=== PATIENT | female | born 1990 | race African-American/Black ===

== ENCOUNTER 2020-06-20 16:14 | Emergency (ER) | payer MEDICARE, SELFPAY ==
[2020-06-20] VITALS (30 sets, daily range): BP systolic 128–163; BP diastolic 87–109; PULSE 72–96; RESP 15–31; TEMP 36.7; O2SAT 96–100
--- NOTE | ~2020-06-20 | XR_ITS ---
EXAMINATION: XR chest 2V 06/20/2020 17:34 INDICATION: Mid chest pain and shortness of breath PROCEDURE: 2 view chest COMPARISON: 04/20/2017 FINDINGS: The lungs are clear. The cardiomediastinal silhouette is within normal limits. There are no pleural effusions. There is no pneumothorax suspected. IMPRESSION: 1: NO ACUTE CARDIOPULMONARY DISEASE. Reviewed, dictated and finalized at location A.
--- NOTE | 2020-06-20 17:04 | ECG_ITS ---
Measurements Intervals Spring Rate: 77 P: 63 MO: 157 QRS: 58 QRSD: 99 T: 36 QT: 360 QTc: 409 Interpretive Statements SINUS RHYTHM POSSIBLE LEFT ATRIAL ENLARGEMENT BORDERLINE ECG Electronically Signed On 06-20-2020 18:23:25 CDT by Ishmael Burger D.O.
[2020-06-20 17:23] LABS: Basophils Percent Auto 0.2 % (0.2-1.2); Eosinophils Percent Auto 0.4 % (0-4.4); Hematocrit 48.9 % (37.0-47.0); Hemoglobin 17.2 g/dL (12.0-15.0); Immature Granulocyte Absolute 0.01 K/mm3 (0.00-0.031); Immature Granulocyte Percent A 0.2 % (0-0.5); Lymphocytes Absolute Auto 2.08 K/mm3 (0.9-3.2); Lymphocytes Percent Auto 40.9 % (18.3-44.2); Mean Corpuscular HGB Conc 35.2 g/dl (32-36); Mean Corpuscular Hemoglobin 29.4 pg (26-34); Mean Corpuscular Volume 83.6 fl (80-100); Mean Platelet Volume 11.5 fl (7.4-10.4); Monocytes Absolute Auto 0.5 K/mm3 (0.1-0.6); Monocytes Percent Auto 10.2 % (2.6-8.5); Neutrophils Absolute Auto 2.4 K/mm3 (1.3-6.7); Neutrophils Percent Auto 48.1 % (45.5-73.1); Platelet Count Result 183 k/mm3 (150-375); Red Blood Count 5.85 M/mm3 (4.2-5.4); Red Cell Distribution Width 13.5 % (11.5-14.5); White Blood Count 5.1 K/mm3 (4.5-10.0)
[2020-06-20 17:33] LABS: INR 1.1; Partial Thromboplastin Time 26.6 SECONDS (22.3-36.8); Prothrombin Time 13.9 Seconds (11.1-14.7)
[2020-06-20 17:42] LABS: Anion Gap 18 mmol/L (8-16); Blood Urea Nitrogen 26 mg/dL (7-17); Calcium 9.8 mg/dL (8.4-10.2); Carbon Dioxide 18 mmol/L (22-30); Chloride 97 mmol/L (98-107); Estimated Glomerular Filt Rate > 60; Glucose 74 mg/dL (65-105); Potassium 3.3 mmol/L (3.4-5.0); Sodium 133 mmol/L (137-145)
--- NOTE | 2020-06-20 17:49 | ED.GENADULT ---
HPI - General Adult General Chief complaint: Unspecified Stated complaint: MS FLARE Time Seen by Provider: 06/20/20 17:35 Source: patient Mode of arrival: ambulatory Limitations: no limitations History of Present Illness HPI narrative: This is a 29 year old female that presents to the ER for right sided chest pain x 3 days. Reports constant pain and then intermittent sharp stabbing pains. Reports she feels short of breath. Denies fever, cough, congestion. Related Data Allergies Allergy/AdvReac Type Severity Reaction Status Date / Time naproxen Allergy Mild itching Verified 06/20/20 16:48 tramadol Allergy Mild itching Verified 06/20/20 16:48 Review of Systems Review of Systems: Narrative: CONSTITUTIONAL: Denies fever CARDIOVASCULAR: Reports chest pain RESPIRATORY: Reports dyspnea. Denies cough All systems reviewed & are unremarkable except as noted in HPI and below PMFSH Past Medical History Medical History (Updated 06/20/20 @ 20:17 by Kristin Loza PA-C) History of hypertension History of multiple sclerosis Social History Social History (Updated 06/20/20 @ 17:51 by Kristin Loza PA-C) Substance use: never Gender identity (if verbalized by the patient): Female Exam Narrative: Exam Narrative: GENERAL: Well-appearing, well-nourished, and in no acute distress. HEAD: Normocephalic, atraumatic. EYES: PERRLA and EOMI. ENT: Nares clear, no rhinorrhea or epistaxis. Mucous membranes moist. Oropharynx without tonsillar hypertrophy exudate or other lesions. Bilateral TMs pearly nassar non-bulging NECK: Supple. No adenopathy or masses. CHEST: Clear to auscultation. No respiratory distress. No wheezes rales or rhonchi. Tender to palpation of the mid chest wall anteriorly HEART: Regular rate and rhythm. No murmur heard. Normal peripheral pulses. EXTREMITIES: Normal range of motion. No edema. SKIN: Warm, dry, no rash. NEURO: No focal deficits. Alert and oriented x3. PSYCH: Normal mood and affect Course Vital Signs Vital signs: Vital Signs Temperature 98.0 F 06/20/20 16:38 Pulse Rate 96 06/20/20 16:38 Respiratory Rate 18 06/20/20 16:38 Blood Pressure 143/96 H 06/20/20 16:38 Pulse Oximetry 100 06/20/20 16:38 Temperature 98.0 F 06/20/20 16:38 Pulse Rate 80 06/20/20 19:01 Respiratory Rate 19 06/20/20 19:01 Blood Pressure 138/96 H 06/20/20 19:01 Pulse Oximetry 100 06/20/20 19:01 Medical Decision Making MDM Narrative Medical decision making narrative: Patient presents to the emergency department for chest pain and shortness of breath x3 days. She is afebrile and nontoxic-appearing. Oxygen saturation has remained normal on room air. CBC is without leukocytosis. Does show hemoconcentration. Metabolic panel also with evidence of possible dehydration. Shows hypokalemia, patient given a dose of potassium in the ED. Patient also hydrated with IV fluids. Baseline troponin and d-dimer are negative. No concerning changes on EKG noted. Chest x-ray is without acute findings. Patient would like to leave [facility] before any other evaluation or treatment. Was told to return to the emergency department at any time for further evaluation Vital Signs Vital Signs: Vital Signs Temperature 98.0 F 06/20/20 16:38 Pulse Rate 96 06/20/20 16:38 Respiratory Rate 18 06/20/20 16:38 Blood Pressure 143/96 H 06/20/20 16:38 Pulse Oximetry 100 06/20/20 16:38 Temperature 98.0 F 06/20/20 16:38 Pulse Rate 80 06/20/20 19:01 Respiratory Rate 19 06/20/20 19:01 Blood Pressure 138/96 H 06/20/20 19:01 Pulse Oximetry 100 06/20/20 19:01 Lab Data Lab results reviewed: Yes I reviewed the patient's lab results. Result diagrams: 06/20/20 17:09 06/20/20 17:09 Labs: Lab Results 06/20/20 06/20/20 06/20/20 Range/Units 17:08 17:09 17:09 WBC 5.1 (4.5-10.0) K/mm3 RBC 5.85 H (4.2-5.4) M/mm3 Hgb 17.2 H (12.0-15.0) g/dL Hct 48.9 H (
[2020-06-20 17:53] LABS: Troponin I < 0.012 ng/mL (0.000-0.034)
[2020-06-20] MEDS: POTASSIUM CHLORIDE 20 MEQ TABLET PO (17:58)
[2020-06-20] MEDS: SODIUM CHLORIDE 0.9% IV 1,000 ML 999 ML IV CONT (17:59)
[2020-06-20 18:11] LABS: Alveolar/Arterial O2 Gradient 24.8 mmHg; Carboxyhemoglobin 1.2 % THb (0-2.0); Device ROOM AIR; Fractional Inspired Oxygen 21 %; HCO3 ABG 17.5 mEq/l (22.0-26.0); Methemoglobin ABG 0.4 %THb (0-1.5); Modified Allen's Test Pass; Oxygen Content ABG 22.5 %vol (16.0-22.0); Oxygen Saturation ABG 96.8 % (95.0-100.0); Oxyhemoglobin 95.1 % THb (90.0-100.0); PCO2 ABG 30.1 mmHg (35.0-45.0); PO2 ABG 88.9 mmHg (80.0-100.0); PO2 FiO2 Ratio Arterial Blood 4.23 %; Reduced Hemoglobin 3.3 %THb (0-5.0); Site Drawn RIGHT RADIAL; Total Hemoglobin 16.8 g/dL (12.0-18.0); pH ABG 7.382 (7.350-7.450)
[2020-06-20 18:11] LABS: D Dimer 0.37 ug/mL (<0.48)
[2020-06-20 18:32] LABS: Lactic Acid Reflex 0.7 mmol/L (0.7-2.1)
--- NOTE | 2020-06-20 19:03 | PC.NURSE ---
pt c/o pressure on chest at time of arrival. with ns bolus and tylenol on board still c/o pressure/pain. RN placed pt on 2LNC to see if that helped pt at all.
[2020-06-20 20:28] LABS: Troponin I < 0.012 ng/mL (0.000-0.034)
--- NOTE | 2020-06-20 20:30 | PC.NURSE ---
[facility] Fosetr at bedside. Pt requesting to leave [facility].
== END 2020-06-20 20:55 | disposition left against medical advice (07) ==
PROVIDERS: Emergency Medicine; Physician Assistant; Emergency Provider Emergency Medicine
DX: R06.02 Shortness of breath (principal); I10 Essential (primary) hypertension; G35 Multiple sclerosis; R94.31 Abnormal electrocardiogram [ECG] [EKG]
CPT/HCPCS: 36415; 36600; 71046; 80048; 82375; 82805; 83050; 83605; 84484; 85025; 85380; 85610; 85730; 93005; 96365; 99284; A9270; J0131; J7030